=== PATIENT | female | born 1945 | race Caucasian/White ===

== ENCOUNTER 2021-02-11 11:31 | Emergency (ER) | payer MEDICARE ==
[2021-02-11] MEDS ORDERED: Sodium Chloride 0.9% 2.5 ML Syringe FLUSH PRN (11:55)
[2021-02-11] MEDS ORDERED: Sodium Chloride 0.9% 10 ML Syringe FLUSH PRN (11:55)
--- NOTE | 2021-02-11 12:20 | PCM.EKG ---
#1 Interpretation EKG Interpretation Comments: EKG done 02/11/2021 at 11:38 PM shows sinus rhythm heart rate 66 HI 200 axis -44 nonspecific interventricular conduction delay. The EKG has no prior for comparison. Impression no acute injury
--- NOTE | 2021-02-11 12:55 | CT ---
Indication: Stroke, aphasia Technique: Volumetric multidetector CT images of the head were obtained without the administration of low osmolar intravenous contrast. Comparison: None available Findings: There is no intra-axial or extra-axial fluid collection. There is demonstration of evolving mass effect centered within the subcortical white matter of the left temporal lobe measuring up to 3.8 x 3.3 centimeters with moderate very focal vasogenic edema. There is age-related cortical atrophy with mild sulcal widening and ex vacuo dilatation of the lateral ventricles. Otherwise, there is chronic small vessel disease change within the subcortical in periventricular white matter without evidence of lost puckett-white differentiation or additional abnormal mass. The orbits and their contents are grossly within normal limits. The bony calvarium is grossly intact. The paranasal sinuses are clear. The mastoid air cells are well aerated. Impression: Demonstration of a 3.8 x 3.3 centimeter intra-axial mass centered in the left temporal lobe with moderate para focal vasogenic edema concerning for a developing malignancy, differential considerations for which include a primary glial neoplasm versus metastatic change from known hepatic malignancy. Follow-up with MRI of the brain with contrast is recommended for further characterization. No other acute intracranial abnormality is appreciated. Findings were discussed with Sunshine Mata at 12:52 p.m. February 11, [address] note that all CT scans at this facility use dose modulation, iterative reconstruction, and/or weight-based dosing when appropriate to reduce radiation dose to as low as reasonably achievable. Dictated by Dinesh Almaraz MD @ 02/11/2021 12:53:19 PM (Electronically Signed)
--- NOTE | 2021-02-11 13:04 | CR ---
Indication: Stroke Comparison: None available. Technique: Single AP view chest Findings: There is hyperinflation and chronic interstitial change. There is mild pulmonary vascular congestion. There is no dense consolidation, pneumothorax pleural effusion. The cardiomediastinal silhouette is within normal limits. The bony thorax is grossly intact. Impression: Hyperinflation and chronic interstitial changes with mild pulmonary vascular congestion. Dictated by Dinesh Almaraz MD @ 02/11/2021 1:02:34 PM (Electronically Signed)
--- NOTE | 2021-02-11 13:08 | CR ---
Indication: Stroke Comparison: None available. Technique: AP, Lateral, and Oblique views right ankle were obtained Findings: There is likely an avulsion injury through the tip of the fibula without evidence of additional large, displaced fracture. There is moderate lateral malleolar soft tissue swelling. The joint spaces are otherwise grossly preserved. Impression: Transverse lucency through the tip of the fibula likely representing a nondisplaced avulsion fracture with associated soft tissue swelling. Dictated by Dinesh Almaraz MD @ 02/11/2021 1:06:27 PM (Electronically Signed)
--- NOTE | 2021-02-11 13:10 | CR ---
INDICATION: Injury TECHNIQUE: X-ray pelvis, one view COMPARISON: None FINDINGS: There are postsurgical changes of the lumbar spine. Mild osteopenia. Mild joint cease narrowing bilaterally. Negative for acute fracture or dislocation. The pelvic ring is intact. The overlying soft tissues unremarkable. IMPRESSION: Negative for acute fracture or dislocation. Dictated by Alexus Reid MD @ 02/11/2021 1:08:50 PM (Electronically Signed)
[2021-02-11 13:16] LABS: BLOOD UREA NITROGEN,BUN 42 mg/dL (7.0-18.0); CARBON DIOXIDE,CO2 26.8 mmol/L (21.0-32.0); CHLORIDE,CL 101 mmol/L (98-107); GLUCOSE RANDOM 95 mg/dL (74-106); SODIUM,NA 141 mmol/L (136-145)
[2021-02-11] MEDS ORDERED: levETIRAcetam 4,500 MG in Dextrose 5% in Water 100 ML IV STA ×2 (14:39)
[2021-02-11] MEDS ORDERED: LEVETIRACETAM IV STA ×2 (14:48)
[2021-02-11] MEDS ORDERED: WATER IV STA ×2 (14:48)
[2021-02-11] MEDS ORDERED: DEXTROSE 5% IV STA ×2 (14:48)
[2021-02-11 15:09] VITALS: BP 146/86; PULSE 74
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
== END 2021-02-11 15:46 ==
LOC: MW.ED 11:31
DX: R47.01 Aphasia (principal); R40.4 Transient alteration of awareness; R22.0 Localized swelling, mass and lump, head; Z20.822 Contact with and (suspected) exposure to COVID-19
CPT/HCPCS: 36415; 70450; 71045; 72170; 73610; 80053; 84439; 84443; 84484; 85025; 93005; 96365; 99291; J1953; J7060; U0002